=== PATIENT | female | born 1970 ===

== ENCOUNTER 2021-09-05 11:24 | Emergency (ER) | payer SELFPAY ==
[2021-09-05] MEDS ORDERED: Naloxone 0.4 MG/ML SDV IVPUSH ONE (11:32)
[2021-09-05] MEDS ORDERED: Rocuronium 50 MG/5 ML Vial ONE (11:33)
[2021-09-05] MEDS ORDERED: EPINEPHrine 1:10,000 1 MG/10 ML Syringe IVPUSH ONE ×2 (11:34→11:44)
[2021-09-05] MEDS ORDERED: Rocuronium 50 MG/5 ML Vial IVPUSH ONE (11:36)
[2021-09-05] MEDS ORDERED: Propofol 200 MG/20 ML SDV IV ONE (11:40)
[2021-09-05] MEDS ORDERED: Magnesium Sulfate/Water 2 GM in Premix Bag 1 BAG IV ONE (11:40)
[2021-09-05] MEDS ORDERED: Amiodarone 150 MG/3 ML SDV IVPUSH ONE (11:48)
[2021-09-05] MEDS ORDERED: propofoL 100 ML IV SCH (11:54)
[2021-09-05 12:02] LABS: ESTIMATED GFR 62 mL/min (>60)
[2021-09-05] MEDS ORDERED: Clopidogrel 75 MG Tab PO ONE (12:14)
[2021-09-05] MEDS ORDERED: Aspirin 81 MG Tab.Chew PO ONE (12:14)
[2021-09-05] MEDS ORDERED: Heparin Sodium/D5W 25,000 UNITS/500 ML BAG IV SCH (12:15)
[2021-09-05] MEDS ORDERED: Heparin Sodium 5,000 Units/ML Vial IVPUSH ONE (12:16)
[2021-09-05] MEDS ORDERED: Atropine 0.1 MG/ML 10 ML Syringe IVPUSH ONE ×2 (12:40)
[2021-09-05] MEDS ORDERED: Aspirin 300 MG Supp RECTAL ONE (12:42)
[2021-09-05] MEDS ORDERED: Sodium Bicarbonate 8.4% 50 MEQ/50 ML Syringe IV ONE (12:44)
[2021-09-05] MEDS ORDERED: Sodium Bicarbonate 150 MEQ in Dextrose 5% in Water 250 ML IV ONE ×2 (13:15)
[2021-09-05] MEDS ORDERED: Norepinephrine Bit/D5W Premix 4 MG in Premix Bag 1 BAG IV SCH (14:45)
== END 2021-09-05 13:30 ==
LOC: EDBD 11:24 → JP.ED 11:24
DX: I46.9 Cardiac arrest, cause unspecified (principal); I25.10 Atherosclerotic heart disease of native coronary artery without angina pectoris; Z20.822 Contact with and (suspected) exposure to COVID-19
CPT/HCPCS: 31500; 36415; 51702; 70450; 71045; 80053; 82803; 84484; 85025; 87635; 92950; 96365; 96366; 96375; 96376; 99285; 99291; A9270; J0171; J0282; J0461; J1644; J2310; J2704; J3475; J7060; J3490; U0002